=== PATIENT | male | born 1955 | race Caucasian/White ===

== ENCOUNTER 2020-08-08 11:26 | Emergency (ER) | payer OTHER ==
[~2020-08-08] VITALS: Ht 175.3 cm; Wt 83.9 kg
[2020-08-08] MEDS ORDERED: PROTONIX40 MG (11:56)
== END 2020-08-08 18:09 | disposition home or self-care (01) ==
LOC: ER 11:26
DX: K59.09 Other constipation (principal); R10.32 Left lower quadrant pain

== ENCOUNTER 2020-08-28 11:29 | Emergency (ER) | payer OTHER ==
[~2020-08-28] VITALS: Ht 175.3 cm; Wt 83.9 kg
[~2020-08-28 11:29] MED LIST: PROTONIX40 MG
== END 2020-08-28 15:12 | disposition home or self-care (01) ==
LOC: ER 11:29
DX: N20.0 Calculus of kidney (principal); N39.0 Urinary tract infection, site not specified; B96.29 Other Escherichia coli [E. coli] as the cause of diseases classified elsewhere; R31.29 Other microscopic hematuria

== ENCOUNTER 2021-04-01 17:13 | Emergency (ER) | payer OTHER ==
[~2021-04-01] VITALS: Ht 175.3 cm; Wt 88.5 kg
== END 2021-04-01 21:00 | disposition home or self-care (01) ==
LOC: ER 17:13
DX: R42 Dizziness and giddiness (principal)

== ENCOUNTER 2021-06-19 17:35 | Emergency (ER) | payer OTHER ==
[~2021-06-19] VITALS: Ht 175.3 cm; Wt 83.9 kg
[2021-06-19] MEDS ORDERED: KETO10TA2 PO (19:52)
[2021-06-19] MEDS ORDERED: NORFLEX100MG PO (19:52)
== END 2021-06-19 20:04 | disposition home or self-care (01) ==
LOC: ER 17:35
DX: S70.02XA Contusion of left hip, initial encounter (principal); S80.02XA Contusion of left knee, initial encounter; S90.02XA Contusion of left ankle, initial encounter; S50.02XA Contusion of left elbow, initial encounter; W22.8XXA Striking against or struck by other objects, initial encounter; Y93.89 Activity, other specified; Y92.89 Other specified places as the place of occurrence of the external cause; Y99.8 Other external cause status

== ENCOUNTER 2021-09-23 19:01 | Emergency (ER) | payer OTHER ==
[~2021-09-23] VITALS: Ht 177.8 cm; Wt 90.7 kg
[~2021-09-23 19:01] MED LIST changes: +KETO10TA2 PO; +NORFLEX100MG PO
== END 2021-09-23 22:32 | disposition home or self-care (01) ==
LOC: ER 19:01
DX: R10.31 Right lower quadrant pain (principal)

== ENCOUNTER 2025-05-12 10:00 | Day surgery (SDC) | payer OTHER ==
[2025-05-12] MEDS ORDERED: ONDANSETRON HCL 2 MG/ML VIAL IV ONE (13:15)
[2025-05-12] MEDS ORDERED: DIPHENHYDRAMINE HCL 50 MG/ML VIAL 1ML IV ONE (13:15)
[2025-05-12] MEDS ORDERED: MIDAZOLAM HCL 2 MG/2 ML VIAL IV ONE (13:15)
[2025-05-12] MEDS ORDERED: fentaNYL CITRATE 50 MCG/ML AMPUL IV PUSH ONE (13:15)
== END 2025-05-12 14:20 | disposition home or self-care (01) ==
LOC: AMB-ENDOS 10:00
PROVIDERS: ATTEND Colon & Rectal Surgery
DX: D12.3 Benign neoplasm of transverse colon (principal); K63.5 Polyp of colon; K57.30 Diverticulosis of large intestine without perforation or abscess without bleeding